=== PATIENT | male | born 1945 | race American Indian/Alaskan Native ===

== ENCOUNTER 2016-09-24 08:02 | Outpatient (CLI) | payer MEDICARE ==
[2016-09-24] MEDS ORDERED: XYLOCAINE TOPICAL 4% TP ONE ×3 (08:35→11:10)
[2016-09-24] MEDS ORDERED: DAKIN'S FULL STRENGTH ONE (10:12)
[2016-09-24] MEDS ORDERED: DAKIN'S HALF STRENGTH TP ONE (11:11)
[2016-09-24] MEDS ORDERED: DAKIN'S FULL STRENGTH TP ONE (15:18)
== END 2016-09-24 08:03 | disposition home or self-care (01) ==
LOC: WOUND 08:02
PROVIDERS: ATTEND Internal Medicine
DX: I87.311 Chronic venous hypertension (idiopathic) with ulcer of right lower extremity (principal); E11.622 Type 2 diabetes mellitus with other skin ulcer; L97.811 Non-pressure chronic ulcer of other part of right lower leg limited to breakdown of skin; E11.40 Type 2 diabetes mellitus with diabetic neuropathy, unspecified; E66.01 Morbid (severe) obesity due to excess calories; L03.116 Cellulitis of left lower limb
CPT/HCPCS: 11042; 11045; 87075; 87116; A6260; G0463; 29581; 99205

== ENCOUNTER 2016-09-27 11:49 | Outpatient (CLI) | payer MEDICARE | END 2016-09-27 11:50 | disposition home or self-care (01) | LOC: WOUND 11:49 | PROVIDERS: ATTEND Nurse Practitioner | DX: I87.311 Chronic venous hypertension (idiopathic) with ulcer of right lower extremity (principal); L97.811 Non-pressure chronic ulcer of other part of right lower leg limited to breakdown of skin; E66.01 Morbid (severe) obesity due to excess calories; E11.40 Type 2 diabetes mellitus with diabetic neuropathy, unspecified | CPT/HCPCS: 99213; G0463 ==

== ENCOUNTER 2016-10-01 07:52 | Outpatient (CLI) | payer SELFPAY ==
[2016-10-01] MEDS ORDERED: SILVER NITRATE TP ONE ×2 (08:59→16:55)
[2016-10-01] MEDS ORDERED: XYLOCAINE TOPICAL 4% TP ONE (09:00)
== END 2016-10-01 07:53 | disposition home or self-care (01) ==
LOC: WOUND 07:52
PROVIDERS: ATTEND Internal Medicine
DX: I87.311 Chronic venous hypertension (idiopathic) with ulcer of right lower extremity (principal); L97.811 Non-pressure chronic ulcer of other part of right lower leg limited to breakdown of skin; E11.40 Type 2 diabetes mellitus with diabetic neuropathy, unspecified; E66.01 Morbid (severe) obesity due to excess calories; I10 Essential (primary) hypertension; L03.116 Cellulitis of left lower limb
CPT/HCPCS: 29581

== ENCOUNTER 2016-10-04 14:10 | Outpatient (CLI) | payer OTHER | END 2016-10-04 14:11 | disposition home or self-care (01) | LOC: WOUND 14:10 | PROVIDERS: ATTEND Nurse Practitioner | DX: I87.311 Chronic venous hypertension (idiopathic) with ulcer of right lower extremity (principal); L97.811 Non-pressure chronic ulcer of other part of right lower leg limited to breakdown of skin; E11.40 Type 2 diabetes mellitus with diabetic neuropathy, unspecified; E66.01 Morbid (severe) obesity due to excess calories | CPT/HCPCS: 29581; G0463; 99213 ==

== ENCOUNTER 2016-10-08 13:13 | Outpatient (CLI) | payer OTHER ==
[2016-10-08] MEDS ORDERED: XYLOCAINE TOPICAL 2% TP ONE ×2 (13:25→15:27)
== END 2016-10-08 13:14 | disposition home or self-care (01) ==
LOC: WOUND 13:13
PROVIDERS: ATTEND Internal Medicine
DX: I87.311 Chronic venous hypertension (idiopathic) with ulcer of right lower extremity (principal); E11.622 Type 2 diabetes mellitus with other skin ulcer; L97.821 Non-pressure chronic ulcer of other part of left lower leg limited to breakdown of skin; I10 Essential (primary) hypertension; E66.01 Morbid (severe) obesity due to excess calories
CPT/HCPCS: 29581

== ENCOUNTER 2016-10-12 11:15 | Outpatient (CLI) | payer OTHER | END 2016-10-12 11:16 | disposition home or self-care (01) | LOC: WOUND 11:15 | PROVIDERS: ATTEND Podiatrist | DX: I87.311 Chronic venous hypertension (idiopathic) with ulcer of right lower extremity (principal); L97.811 Non-pressure chronic ulcer of other part of right lower leg limited to breakdown of skin; E66.01 Morbid (severe) obesity due to excess calories; E11.40 Type 2 diabetes mellitus with diabetic neuropathy, unspecified | CPT/HCPCS: 99212; G0463 ==

== ENCOUNTER 2016-10-15 09:07 | Outpatient (CLI) | payer OTHER ==
[2016-10-15] MEDS ORDERED: XYLOCAINE TOPICAL 2% TP ONE ×2 (10:14→13:13)
== END 2016-10-15 09:08 | disposition home or self-care (01) ==
LOC: WOUND 09:07
PROVIDERS: ATTEND Internal Medicine
DX: I87.311 Chronic venous hypertension (idiopathic) with ulcer of right lower extremity (principal); L97.811 Non-pressure chronic ulcer of other part of right lower leg limited to breakdown of skin; E11.40 Type 2 diabetes mellitus with diabetic neuropathy, unspecified; E66.01 Morbid (severe) obesity due to excess calories
CPT/HCPCS: 29581